=== PATIENT | male | born 1950 | race African-American/Black ===

== ENCOUNTER 2024-08-15 07:12 | Observation (INO) | payer MEDICARE, MEDICAID ==
[2024-08-15 08:16] LABS: Troponin I 0.149 ng/mL (< 0.028)
[2024-08-15] MEDS ORDERED: Aspirin Chewable 81 MG TAB ONE (08:57)
[2024-08-15] MEDS ORDERED: hydrALAZINE 20 MG/ML VIAL SLOW IVP PRN (09:00)
[2024-08-15] MEDS ORDERED: Acetaminophen 325 MG TAB PO PRN (09:00)
[2024-08-15] MEDS ORDERED: Ipratropium/Albuterol 3 ML NEB NEB PRN (09:00)
[2024-08-15 11:24] LABS: Troponin I 0.138 ng/mL (< 0.028)
[2024-08-15 13:19] VITALS: BMI 25.7
[2024-08-15] MEDS ORDERED: Enoxaparin 40 MG (0.4 mL) SYRINGE ONE (13:29)
[2024-08-15] MEDS ORDERED: methylPREDNISolone Sod Succ 40 MG VIAL ONE ×2 (13:30→19:31)
[2024-08-15] MEDS: methylPREDNISolone Sod Succ 40 MG VIAL IVP SCH (13:36)
[2024-08-15] MEDS: Enoxaparin 40 MG (0.4 mL) SYRINGE SC SCH (13:38)
[2024-08-15 14:35] LABS: Troponin I 0.119 ng/mL (< 0.028)
[2024-08-15] MEDS ORDERED: Carvedilol 6.25 MG TAB ONE (16:46)
[2024-08-15] MEDS: Carvedilol 6.25 MG TAB PO SCH (16:47)
[2024-08-15 17:17] LABS: Troponin I 0.116 ng/mL (< 0.028)
[2024-08-15] MEDS: Ipratropium/Albuterol 3 ML NEB NEB SCH (20:02)
[2024-08-15] MEDS: Arformoterol 15 MCG/2 ML NEB NEB SCH (20:02)
[2024-08-15] MEDS: Rosuvastatin 5 MG TAB PO SCH (22:25)
[2024-08-16] MEDS: cefTRIAXone\\ROCEPHIN 1 GM in Sodium Chloride 0.9% 100 ML IVPB SCH (05:06)
[2024-08-16 06:24] LABS: #Basophils Less than 0.03 10x3/uL (0.0-0.2); #Eosinophils Less than 0.03 10x3/uL (0.0-0.7); %Basophils 0.1 % (0.0-1.0); %Lymphocytes 8.3 % (21.0-51.0); %Monocytes 2.5 % (0.0-10.0); %Neutrophils 88.4 % (42.0-75.0); Hematocrit 39.9 % (42.0-52.0); Hemoglobin 13.6 g/dL (14.0-18.0); Mean Corpuscular HGB CONC 34.1 g/dL (32.0-36.0); Mean Corpuscular Hemoglobin 34.7 pg (27.0-31.0); Mean Corpuscular Volume 101.8 fL (78.0-98.0); Mean Platelet Volume 9.4 fL (7.4-10.4); Platelet Count 194 10x3/uL (130-400); RBC Distribution Width 12.4 % (11.5-14.5); Red Blood Cell (RBC) Count 3.92 mill/uL (4.70-6.10)
[2024-08-16 06:51] LABS: Anion Gap 15 mmol/L (10-20); BUN (Urea Nitrogen) 21 mg/dL (8.4-25.7); Calc. Creatinine Clearance 59 mL/min (70-130); Calcium 8.4 mg/dL (7.8-10.44); Carbon Dioxide 21 mmol/L (23-31); Chloride 105 mmol/L (98-107); Estimated GFR 71; Glucose 148 mg/dL (83-110); Potassium 4.5 mmol/L (3.5-5.1); Sodium 136 mmol/L (136-145)
[2024-08-16] MEDS: Amlodipine 10 MG TAB PO SCH (10:29)
[2024-08-16] MEDS: Losartan 25 MG TAB PO SCH (10:29)
[2024-08-16 15:12] VITALS: BP 129/80; TEMP 98.1
== END 2024-08-16 16:02 | disposition home or self-care (01) ==
LOC: ERS 07:12 → ERHOLD 08:36 → OBS 21:41
PROVIDERS: ADMIT Internal Medicine; ATTEND Hospitalist
PROC: B24BZZZ Ultrasonography of Heart with Aorta (ICD-10-PCS; principal; 2024-08-16)
DX: J96.20 Acute and chronic respiratory failure, unspecified whether with hypoxia or hypercapnia (principal); J44.1 Chronic obstructive pulmonary disease with (acute) exacerbation; I10 Essential (primary) hypertension; I25.10 Atherosclerotic heart disease of native coronary artery without angina pectoris; E78.5 Hyperlipidemia, unspecified; N40.0 Benign prostatic hyperplasia without lower urinary tract symptoms; Z86.73 Personal history of transient ischemic attack (TIA), and cerebral infarction without residual deficits; Z87.891 Personal history of nicotine dependence; Z79.51 Long term (current) use of inhaled steroids; Z79.82 Long term (current) use of aspirin; Z79.2 Long term (current) use of antibiotics; Z79.899 Other long term (current) drug therapy
CPT/HCPCS: 80048; 84484; 85025; 93306; 94640 ×2; 96372 ×2; 96374; 96375; 96376 ×2; 99285; G0378 ×3; J0696; J1650; J2919 ×2; 36415; J7620